=== PATIENT | female | born 1990 | race African-American/Black ===

== ENCOUNTER 2018-02-22 23:19 | Outpatient (CLI) | payer OTHER ==
[~2018-02-22] VITALS: Ht 147.3 cm; Wt 69.9 kg
[~2018-02-22 23:19] MED LIST: LIDOCAINE20 MG/1 M5 TP; MOTRIN800 MG PO; NAPROSYN500 MG PO; NORCO 10/3251 TABLET PO; VALTREX1000 MG PO
[2018-02-22 23:41] VITALS: BP 114/72
[2018-02-22] MEDS ORDERED: PRENATAL TABLE1 EAC3 PO (23:56)
[2018-02-22] MEDS ORDERED: IRON 100 PLUS1 EACH PO (23:57)
[2018-02-22] MEDS ORDERED: TOPICORT 0.25%60 GM TP (23:58)
[2018-02-22] MEDS ORDERED: VALACYCLOVIR500 MG PO (23:58)
== END 2018-02-23 00:25 | disposition home or self-care (01) ==
LOC: LDRP-OP 23:19 → 2WEST 23:20
DX: O46.93 Antepartum hemorrhage, unspecified, third trimester (principal); Z3A.29 29 weeks gestation of pregnancy
CPT/HCPCS: 59025; G0378

== ENCOUNTER 2018-05-06 07:00 | Outpatient (CLI) | payer OTHER ==
[~2018-05-06 07:00] MED LIST changes: +IRON 100 PLUS1 EACH PO; +PRENATAL TABLE1 EAC3 PO; +TOPICORT 0.25%60 GM TP; +VALACYCLOVIR500 MG PO
[2018-05-06 07:17] VITALS: BP 115/62
[2018-05-06 09:02] VITALS: BP 113/65
[2018-05-06 11:09] VITALS: BP 125/68
[2018-05-06] MEDS ORDERED: TYLENOL325 M2 PO (13:16)
== END 2018-05-06 14:05 | disposition home or self-care (01) ==
LOC: LDRP-OP 07:00 → 2WEST 07:01 → LDRP-OP 06-04 00:44
DX: O47.1 False labor at or after 37 completed weeks of gestation (principal); Z3A.40 40 weeks gestation of pregnancy
CPT/HCPCS: 59025; G0378

== ENCOUNTER 2018-05-08 22:25 | Inpatient (IN) | payer OTHER ==
[~2018-05-08] VITALS: Ht 147.3 cm; Wt 78.9 kg
[~2018-05-08 22:25] MED LIST changes: +TYLENOL325 M2 PO
[2018-05-08 22:49] VITALS: BP 130/82
[2018-05-08 23:51] VITALS: BP 119/74
[2018-05-09] VITALS (27 sets, daily range): BP systolic 108–140; BP diastolic 58–96
[2018-05-09 00:06] LABS: BASOPHIL (%) 0.1 % (0-1); EOSINOPHIL (%) 0.8 % (0-5); EOSINOPHIL COUNT 0.1 K/uL (0-0.3); HEMATOCRIT 30.9 % (36.0-46.0); HEMOGLOBIN 10.5 G/DL (11.9-15.5); IMMATURE GRANULOCYTE (%) 0.8 % (0.0-0.7); LYMPHOCYTE (%) 17.3 % (15-42); LYMPHOCYTE COUNT 1.3 K/uL (1.0-2.8); MCH 31.7 PG (29.0-34.0); MCV 93.4 FL (83-99); MONOCYTE (%) 14.9 % (3-12); MONOCYTE COUNT 1.2 K/uL (0-0.8); NEUTROPHIL (%) 66.1 % (45-76); NEUTROPHIL COUNT 5.1 K/uL (1.8-6.4); PLATELET COUNT 210 K/uL (156-360); RBC DIS.WIDTH-CV 16.6 % (11.8-14.6); RBC DIS.WIDTH-SD 56.8 % (39-53); RED BLOOD COUNT 3.31 M/uL (3.80-5.20); WHITE BLOOD COUNT 7.7 K/uL (4.1-10.2)
[2018-05-09 00:17] LABS: AMPHETAMINE NEGATIVE (500 ng/mL); BARBITURATES NEGATIVE (200 ng/mL); BENZODIAZEPINES NEGATIVE (150 ng/mL); BUPRENORPHINE NEGATIVE (10 ng/mL); COCAINE NEGATIVE (150 ng/mL); METHADONE NEGATIVE (200 ng/mL); METHAMPHETAMINE NEGATIVE (500 ng/mL); OPIATES (MORPHINE) NEGATIVE (100 ng/mL); OXYCODONE NEGATIVE (100 ng/mL); PHENCYCLIDINE NEGATIVE (25 ng/mL); PROPOXYPHENE NEGATIVE (300 ng/mL); THC CANNABINOIDS NEGATIVE (50 ng/mL); TRICYCLIC ANTIDEPRESSANTS NEGATIVE (300 ng/mL)
[2018-05-10 07:30] LABS: BASOPHIL (%) 0.1 % (0-1); EOSINOPHIL (%) 0.3 % (0-5); HEMATOCRIT 22.6 % (36.0-46.0); IMMATURE GRANULOCYTE (%) 0.7 % (0.0-0.7); LYMPHOCYTE COUNT 1.2 K/uL (1.0-2.8); MCH 31.4 PG (29.0-34.0); MCHC 33.6 G/DL (30.0-36.0); MCV 93.4 FL (83-99); MONOCYTE (%) 12.1 % (3-12); MONOCYTE COUNT 1.6 K/uL (0-0.8); NEUTROPHIL (%) 77.8 % (45-76); NEUTROPHIL COUNT 10.3 K/uL (1.8-6.4); PLATELET COUNT 204 K/uL (156-360); RBC DIS.WIDTH-CV 16.8 % (11.8-14.6); RBC DIS.WIDTH-SD 57.6 % (39-53); WHITE BLOOD COUNT 13.3 K/uL (4.1-10.2)
[2018-05-10 07:31] VITALS: BP 102/56
[2018-05-10 07:50] LABS: HEMOGLOBIN 7.6 G/DL (11.9-15.5); RED BLOOD COUNT 2.42 M/uL (3.80-5.20)
[2018-05-10 15:12] VITALS: BP 112/57
[2018-05-10 23:10] VITALS: BP 131/61
[2018-05-11 06:40] LABS: BASOPHIL (%) 0.1 % (0-1); EOSINOPHIL (%) 1.1 % (0-5); EOSINOPHIL COUNT 0.1 K/uL (0-0.3); HEMATOCRIT 23.4 % (36.0-46.0); HEMOGLOBIN 7.9 G/DL (11.9-15.5); IMMATURE GRANULOCYTE (%) 0.9 % (0.0-0.7); LYMPHOCYTE (%) 15.8 % (15-42); LYMPHOCYTE COUNT 1.7 K/uL (1.0-2.8); MCH 31.9 PG (29.0-34.0); MCHC 33.8 G/DL (30.0-36.0); MCV 94.4 FL (83-99); MONOCYTE (%) 12.3 % (3-12); MONOCYTE COUNT 1.3 K/uL (0-0.8); NEUTROPHIL (%) 69.8 % (45-76); NEUTROPHIL COUNT 7.4 K/uL (1.8-6.4); PLATELET COUNT 262 K/uL (156-360); RBC DIS.WIDTH-CV 17.2 % (11.8-14.6); RBC DIS.WIDTH-SD 59.2 % (39-53); RED BLOOD COUNT 2.48 M/uL (3.80-5.20); WHITE BLOOD COUNT 10.6 K/uL (4.1-10.2)
[2018-05-11 08:08] VITALS: BP 127/70
[2018-05-11] MEDS ORDERED: IBUPROFEN800 MG PO (09:16)
[2018-05-11 16:09] VITALS: BP 120/80
== END 2018-05-11 20:30 | disposition home or self-care (01) | DRG 774 ==
LOC: LDRP-OP 22:25 → 2WEST 22:26 → LDRP-OP 06-04 14:25
PROVIDERS: Advanced Practice Midwife
DX: O66.0 Obstructed labor due to shoulder dystocia (principal); O48.0 Post-term pregnancy; O41.1230 Chorioamnionitis, third trimester, not applicable or unspecified; O99.02 Anemia complicating childbirth; D62 Acute posthemorrhagic anemia; O98.32 Other infections with a predominantly sexual mode of transmission complicating childbirth; A60.00 Herpesviral infection of urogenital system, unspecified; O75.89 Other specified complications of labor and delivery; R51 Headache; O99.214 Obesity complicating childbirth; E66.9 Obesity, unspecified; Z3A.40 40 weeks gestation of pregnancy; Z37.0 Single live birth
CPT/HCPCS: 59025; 72040; 85025; 87070; 87075; 87076; 87185; 87205; 88307; C1755; G0378; J0290; J1580; J2590; J3010; J7050; J7120; Q0169; S0020

== ENCOUNTER 2018-05-13 23:11 | Emergency (ER) | payer OTHER ==
[~2018-05-13] VITALS: Ht 147.3 cm; Wt 70.0 kg
[~2018-05-13 23:11] MED LIST changes: +IBUPROFEN800 MG PO
[2018-05-14 01:02] LABS: HEMATOCRIT 27.3 % (36.0-46.0); HEMOGLOBIN 9.1 G/DL (11.9-15.5); MCH 31.4 PG (29.0-34.0); MCHC 33.3 G/DL (30.0-36.0); MCV 94.1 FL (83-99); NRBC (%) 0.2 /100 WBC (0-0); RBC DIS.WIDTH-CV 16.1 % (11.8-14.6); RBC DIS.WIDTH-SD 55.7 % (39-53); WHITE BLOOD COUNT 12.3 K/uL (4.1-10.2)
[2018-05-14 01:05] LABS: PLATELET COUNT 377 K/uL (156-360)
[2018-05-14 01:13] LABS: ALBUMIN 3.1 g/dL (3.2-4.8)
[2018-05-14 01:14] LABS: CHLORIDE 109 mEq/L (99-109); POTASSIUM 4.2 mEq/L (3.7-5.4); SODIUM 141 mEq/L (136-147)
[2018-05-14 01:16] LABS: GLUCOSE 82 mg/dL (70-99); TOTAL PROTEIN 6.1 g/dL (6.4-8.3)
[2018-05-14 01:18] LABS: TOTAL BILIRUBIN 0.3 mg/dL (0.0-1.0)
[2018-05-14 01:19] LABS: ALKALINE PHOSPHATASE 117 IU/L (3-129)
[2018-05-14 01:20] LABS: CREATININE 0.7 mg/dL (0.6-1.3); GFR ESTIMATE (CALCULATED) > 59 mL/min/
[2018-05-14 01:21] LABS: AST (GOT) 22 IU/L (2-34); UREA NITROGEN (BUN) 12 mg/dL (9-23)
[2018-05-14 01:22] LABS: ALT (GPT) 29 IU/L (3-49)
[2018-05-14 01:27] LABS: APPEARANCE CLOUDY ((CLEAR)); BILIRUBIN NEGATIVE; BLOOD LARGE; GLUCOSE (STRIP) NEGATIVE; KETONES 5; LEUKOCYTES LARGE; NITRITE NEGATIVE; PROTEIN (STRIP) 100; SPECIFIC GRAVITY 1.018 (1.000-1.030); UROBILINOGEN 0.2 MG/DL (0.2-1.0)
[2018-05-14 01:28] LABS: COLOR RED ((YELLOW))
[2018-05-14 02:00] LABS: RED BLOOD CELLS 30-40 /HPF (0-5); WHITE BLOOD CELLS TNTC /HPF (0-5)
[2018-05-14 02:01] LABS: BACTERIA 3+ /HPF; EPITHELIAL CELLS 2+ /HPF; MUCUS NONE SEEN /LPF; UCUL ADDED? YES
[2018-05-14] MEDS ORDERED: KEFLEX500 MG PO (03:33)
[2018-05-14 06:40] VITALS: BP 105/71
== END 2018-05-14 06:41 | disposition home or self-care (01) ==
LOC: EME 23:11
PROVIDERS: Physician Assistant
PROC: 3E0S3GC Introduction of Other Therapeutic Substance into Epidural Space, Percutaneous Approach (ICD-10-PCS; principal; 2018-05-14)
DX: G97.1 Other reaction to spinal and lumbar puncture (principal); N39.0 Urinary tract infection, site not specified; J45.909 Unspecified asthma, uncomplicated
CPT/HCPCS: 80053; 81003; 85027; 87086; 99281; 99285; J0780; J1200; J1885; J2250; J3475; J7030